=== PATIENT | female | born 1960 | race Caucasian/White ===

== ENCOUNTER → 2018-07-07 | Outpatient (CLI) | END | disposition home or self-care (01) ==

== ENCOUNTER 2019-04-27 05:37 | Day surgery (SDC) | payer OTHER ==
[2019-04-27] VITALS (16 sets, daily range): BP systolic 103–132; BP diastolic 64–80; PULSE 62–77; RESP 16–23; Ht 172.7 cm; Wt 79.3 kg
[~2019-04-27] VITALS: Ht 172.7 cm; Wt 79.3 kg
[~2019-04-27 05:37] MED LIST: CIPR500T4 PO; SOFO1TAB2 PO
[2019-04-27] MEDS ORDERED: ROPIVACAINE 0.5 % 30 ML VIAL ONE (07:01)
[2019-04-27] MEDS ORDERED: NEOMYC/POLYMYX/BACIT 30 GM OINT ONE (07:01)
--- NOTE | 2019-04-27 07:22 | PREAC ---
Date/Time of Note Date/Time of Note DATE: 04/27/19 TIME: 07:21 Anesthesia Eval and Record Evaluation Time Pre-Procedure Interview DATE: 04/27/19 TIME: 07:21 Age 59 Sex female NPO: 8 hrs Preoperative diagnosis knee pain Planned procedure Knee arthroscopy Past Medical History Past Medical History: Includes Hepatic: Hepatitis GI: Obesity Infection(s): Hep C Surgery & Anesthesia Issues No known issue Meds Anticoagulation: No Beta Alex within 24 hr: No Reason Beta Alex not given: Pt. not on B-Alex Reported Medications Sofosbuvir/Velpatas/Voxilaprev (Vosevi 400-100-100 mg Tablet) 1 Each Tablet, 1 EACH PO DAILY, TAB 04/27/19 Ciprofloxacin Hcl* (Ciprofloxacin Hcl*) 500 Mg Tablet, 500 MG PO BID, #14 TAB STARTED 04-24-19 FOR 7 DAYS 04/27/19 Meds reviewed: Yes Allergies Coded Allergies: No Known Allergy (Unverified , 04/27/19) Allergies Reviewed: Yes Labs/Studies Labs Reviewed: Reviewed by anesthesiologist test: N/A Pre-procedure Exam Last vitals Vital Signs Date Temp Pulse Resp B/P (MAP) Pulse Ox O2 O2 Flow FiO2 Time Delivery Rate 04/27/19 97.5 71 18 121/76 95 06:43 (91) Airway: Adequate mouth opening, Adequate thyromental dist Mallampati: Mallampati II Teeth: Normal Lung: Normal Heart: Normal ASA Physical Status ASA physical status: 3 Emergency: None Planned Anesthetic General/MAC: ETT Pre-operative Attestations Prior to commencing anesthesia and surgery, the patient was re-evaluated, there was verification of: *The patient's identity *The results of appropriate recent lab work and preoperative vital signs *The above evaluation not changing prior to induction *Anesthetic plan, risk benefits, alternative and complications discussed with patient/family; questions answered; patient/family understands, accepts and wishes to proceed. CHAYO MANRIQUEZ Apr 27, 2019 07:22
--- NOTE | 2019-04-27 07:27 | HPN ---
Date/Time of Note Date/Time of Note DATE: 04/27/19 TIME: 07:27 Interval H&P Admission Note Pt. seen H&P reviewed: No system changes VERÓNICA CHRISTIAN MD Apr 27, 2019 07:27
[2019-04-27] MEDS ORDERED: HYDROmorphONE 1 MG/5 ML IV SYRINGE IV PRN ×3 (07:30)
[2019-04-27] MEDS ORDERED: morphine 2 MG INJ IV PRN (07:30)
[2019-04-27] MEDS ORDERED: FENTAnyl 50 MCG/ML VIAL IV PRN (07:30)
[2019-04-27] MEDS ORDERED: METOCLOPRAMIDE 10 MG INJ IV PRN (07:30)
[2019-04-27] MEDS ORDERED: MEPERIDINE 25 MG INJ IV PRN (07:30)
[2019-04-27] MEDS ORDERED: DIPHENHYDRAMINE 50 MG INJ IV PRN (07:30)
[2019-04-27] MEDS ORDERED: KETOROLAC 30 MG INJ IV SCH (07:30)
[2019-04-27] MEDS ORDERED: ONDANSETRON 4 MG INJ IV PRN (07:30)
[2019-04-27] MEDS ORDERED: ALBUTEROL 0.083% (NEB) 2.5 MG/3 ML AMP HHN PRN (07:30)
[2019-04-27] MEDS ORDERED: FENTAnyl 50 MCG/ML VIAL ONE (07:31)
[2019-04-27] MEDS ORDERED: LIDOCAINE 100 MG SYRINGE ONE (07:51)
[2019-04-27] MEDS ORDERED: SUGAMMADEX SODIUM 200 MG/2 ML VIAL IV ONE (07:51)
[2019-04-27] MEDS ORDERED: PROPOFOL 20 ML ONE (07:51)
[2019-04-27] MEDS ORDERED: ROCURONIUM 50 MG INJ ONE (07:51)
[2019-04-27] MEDS ORDERED: SUCCINYLCHOLINE CHLORIDE 100 MG/5 ML SYG IV ONE (07:51)
[2019-04-27] MEDS ORDERED: CLINDAMYCIN 900 MG/D5W (PMX) 50 ML IVPB ONE (07:51)
--- NOTE | 2019-04-27 08:41 | OPR ---
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 Operation/Procedure Performed Left knee arthroscopy with complete synovectomy and removal of focal pigmented villonodular synovitis Left knee arthroscopy with partial medial lateral meniscectomy and chondroplasty of the patella femoral joint Surgeon Jeffery Christian MD Top Former None Anesthesia Type: general Anesthesiologist: CHAYO MANRIQUEZ Tourniquet Time: 29 minutes at 250 mmHg Estimated Blood Loss: minimal Transfusion none Specimen Pathology sent for both frozen and permanent section as well as intraoperative pathology Grafts/Implants none Complications none Pt Condition Post Procedure: stable Disposition: PACU Indications Patient is a 59-year-old female who is in ongoing pain in her left knee with an MRI confirming a focal mass in her knee likely pigmented villonodular synovitis. Given her ongoing pain and symptoms patient is indicated for surgery. Risk Note: Patient was explained the risks and benefits of surgery and the patient's solomon language including not limited to infection, bleeding, injury to blood vessels, nerves, ligaments or tendons. Risks of anesthesia, deep vein thrombosis and need for reduce future surgery. Patient acknowledged these risk by signing the surgical consent form. Procedure Description The correct operative site was noted and marked in the preoperative holding area. The patient was then brought back into the operative theater, placed supine on the operative table. Left knee was examined under anesthesia. Range of motion was 0-120. There is no varus or valgus or anterior or posterior instability. There is crepitus noticed at the patellofemoral joint. Tourniquet was then placed on the operative extremity thigh non-sterilely. Patient was then given preoperative antibiotics and then prepped and draped in normal sterile fashion. A timeout was taken and all parties in the room agreed it was the correct patient, correct extremity and correct procedure. Standard anterior lateral portal was created and the knee joint was entered with a blunt tipped trocar, followed by 30 arthroscope. Inflow was achieved with a pump and the pressure maintained at approximately 50 mmHg. A routine arthroscopic surgery was performed. Suprapatella pouch was unremarkable, however did show evidence of some villi appeared to be inflamed. The undersurface of the patella showed advanced grade 4 chondromalacia in the lateral trochlea showed evidence of grade IV chondromalacia. There is no central chondromalacia seen in the trochlea. The medial and lateral gutters were visualized. There were no loose bodies seen. There is an inflamed hypertrophic plica noted in the anterior and superior medial aspect of the knee. The popliteus hiatus was entered and was normal. Lateral compartment was entered and grade 1 chondromalacia was seen on the lateral tibial plateau and femoral condyle. Scope was then brought into the intercondylar notch and an anteromedial portal was made. Shaver was brought into the knee and small amount of fat pad and scar tissue was initially gently debrided. There is a large focal knee mass is seen in the anterior medial portion of the knee in front of the medial compartment. Biopsy was taken and given to pathologist intraoperatively who confirmed to be likely pigmented villonodular synovitis. Several more biopsies were taken and sent for both permanent and frozen section. The remainder of the mass was then removed with a biter and a shaver and confirmed that there is no remainder of the focal knee mass in the knee after this was done. The anterior cruciate ligament was intact and probed. The knee was brought into a valgus position and the medial compartment was entered. The articular surface of the medial femoral condyle and medial tibial plateau revealed minimal chondromalacia. There was a degenerative mid body tear that visualized and debrided gently with a motorized shaver and basket forceps, the posterior horn demonstrated a degenerative tear and fibrillation pattern. The motorized shaver and basket biters were used to smooth the remaining meniscal rim, with care to maintain the peripheral meniscal rim. A probe was introduced and this was carefully probed and was found to be stable. Chondroplasty was then carried out along the weightbearing aspect of the medial femoral condyle, medial tibial plateau, taking care to remove only loose articular cartilage debris and preserve functional articular cartilage. The lateral compartment was reentered and and a inner rim lateral meniscus tear was noted and debrided with a shaver and the loose chondral debris was debrided with motorized shaver. Attention was then directed back to the patella femoral joint and a chondroplasty was carried out along the weightbearing aspect of the trochlea and undersurface of the patella to again remove loose debris and maintain functional active articular cartilage. The knee was then irrigated with additional 2 L of lactated Ringers solution. Excess fluid was then drained. Range of motion was then attempted showing 0- 125 degrees of motion The portal sites were closed with 4-0 Monocryl and Steri-Strips and dressed with Xeroform and triple antibiotic ointment. The knee was then injected with 20 cc of 0.5% plain ropivacaine. A dry sterile dressing was then applied, followed by a compressive bulky soft bandage and an A CE Wrap. At the completion of the surgery patient had palpable pulses, soft arms and brisk cap refill. The patient tolerated the procedure well and was taken to the PACU without any complications. All sponge and needle counts were correct. Patient will begin pain medicine and 48 hours of antibiotics as well as aspirin 81 mg for the duration of 4 weeks postoperatively JEFFERY CHRISTIAN MD Apr 27, 2019 08:41
[2019-04-27] MEDS: FENTAnyl 50 MCG/ML VIAL IV PRN ×2 (09:00→09:10)
--- NOTE | 2019-04-29 09:15 | PAC ---
Date/Time of Note Date/Time of Note DATE: 04/29/19 TIME: 09:14 Post-Anesthesia Notes Post-Anesthesia Note Last documented vital signs Vital Signs Date Temp Pulse Resp B/P (MAP) Pulse Ox O2 O2 Flow FiO2 Time Delivery Rate 04/27/19 98.0 12:41 04/27/19 69 20 122/65 98 Room Air 11:25 (84) Activity: WNL Respiratory function: WNL Cardiovascular function: WNL Mental status: Baseline Pain reasonably controlled: Yes Hydration appropriate: Yes Nausea/Vomiting absent: Yes CHAYO MANRIQUEZ Apr 29, 2019 09:15
== END 2019-04-27 11:25 | disposition home or self-care (01) ==
LOC: SDS 05:37
PROVIDERS: ATTEND Orthopaedic Surgery
DX: M12.262 Villonodular synovitis (pigmented), left knee (principal); S83.242A Other tear of medial meniscus, current injury, left knee, initial encounter; S83.282A Other tear of lateral meniscus, current injury, left knee, initial encounter; M94.262 Chondromalacia, left knee; X58.XXXA Exposure to other specified factors, initial encounter
CPT/HCPCS: 29880; 82306; 88307; 88331; J1170; J1885; J2001; J2765; J2795; J3010; Z7512; Z7610